=== PATIENT | male | born 1970 | race Caucasian/White ===

== ENCOUNTER → 2019-03-11 | Outpatient (CLI) | payer BC ==
[~2019-03-11] MED LIST: DOC100 PO; DOCU-416 PO; HYDR2TAB74 PO; KET10 PO; LEV500 PO; OND4 PO; ONDA4TAB9 PO; OXYB10TA21 PO; OXYC-854 PO; OXYC-865 PO; PER PO; PHEN200T32 PO; PHENA200 PO; POTA-22 PO; TAM4 PO; TAMS0.4C25 PO; TOLT4CAP13 PO
--- NOTE | 2019-03-11 10:06 | RADIOLOGY IMAGING REPORT ---
FACILITY: [facility] PATIENT NAME: Dipak Ward : 1970 MR: [id number] V: [id number] EXAM DATE: ORDERING PHYSICIAN: MIO BURDEN TECHNOLOGIST: Location: [facility] Patient: Dipak Ward : 1970 Visit/Account:[id number] Date of Sevice: 03/11/2019 LIVER HISTORY: For direct, elevated LFT, midline discomfort, history of testicular cancer 16 years ago COMPARISON: CT abdomen pelvis November 18, 2017 FINDINGS: Gallbladder: There is a nonmobile nonshadowing echogenic focus along the posterior wall the gallbladd er measuring approximately 2 mm in diameter Liver: There is increased echogenicity throughout liver which can be seen with fatty infiltration oth er infiltrative process. Common duct: Normal, 3.7 mm diameter. Pancreas: Partially obscured by bowel, visualized aspects unremarkable. Right kidney: Right kidney appears unremarkable measuring 11 cm in length. There is no evidence of r ight hydronephrosis Upper abdominal aorta and IVC: Patent. Ascites: None visualized. IMPRESSION: There is a nonmobile nonshadowing echogenic focus along the posterior wall the gallbladder measuring 2 mm in diameter which may represent a small polyp versus nonshadowing stone Increased echogenicity throughout the liver can be seen with fatty infiltration or other infiltrative process Report Dictated By: Kim Lopez MD at 03/11/2019 9:56 AM Report E-Signed By: Kim Lopez MD at 03/11/2019 10:01 AM WSN:[id number]
== END ==
LOC: US 00:47
PROVIDERS: ATTEND Family Medicine
DX: R94.5 Abnormal results of liver function studies (principal)
CPT/HCPCS: 76705